=== PATIENT | female | born 1980 | race Caucasian/White ===

== ENCOUNTER 2019-01-04 05:31 | Inpatient (IN) | payer MEDICARE, MEDICAID ==
[2018-12-22 16:25] LABS: BASOPHILS # (AUTO) 0.1 X10'3 (0-0.2); BASOPHILS % (AUTO) 1.3 % (0-1); EOSINOPHILS # (AUTO) 0.1 X10'3 (0-0.9); LYMPHOCYTES # (AUTO) 1.8 X10'3 (1.1-4.8); LYMPHOCYTES % (AUTO) 34.2 % (21-51); MEAN CORPUSCULAR HEMOGLOBIN 31.2 PG (27.0-31.0); MEAN CORPUSCULAR HGB CONC 33.8 g/dL (33.0-36.5); MEAN CORPUSCULAR VOLUME 92.3 FL (78-98); MEAN PLATELET VOLUME 8.7 FL (7.4-10.4); MONOCYTES # (AUTO) 0.4 X10'3 (0-0.9); MONOCYTES % (AUTO) 8.1 % (2-12); NEUTROPHILS # (AUTO) 2.9 X10'3 (1.8-7.7); NEUTROPHILS % (AUTO) 55.4 % (42-75); PRE OP HEMATOCRIT 46.7 % (35.0-45.0); PRE OP HEMOGLOBIN 15.8 g/dL (12.0-16.0); PRE OP PLATELET COUNT 201 X10'3 (140-440); RED BLOOD COUNT 5.06 X10'6 (4.20-5.60); RED CELL DISTRIBUTION WIDTH 13.9 % (11.5-14.5)
[2018-12-22 16:35] LABS: PRE OP PROTIME 10.6 SECONDS (9.0-12.0)
[2018-12-22 16:48] LABS: ALBUMIN 3.3 G/DL (3.4-5.0); ALBUMIN/GLOBULIN RATIO 0.9 (1.1-1.5); ALKALINE PHOSPHATASE 130 IU/L (46-116); BLOOD UREA NITROGEN 17 MG/DL (7-18); CALCIUM 9.3 MG/DL (8.5-10.1); CHLORIDE 107 MMOL/L (99-107); CREATININE 1.06 MG/DL (0.40-0.90); PRE OP ANION GAP 6 (8-16); PRE OP AST 67 U/L (10-37); PRE OP BILIRUB, TOTAL 0.9 MG/DL (0.0-1.0); PRE OP GLUCOSE 74 MG/DL (70-104); PRE OP POTASSIUM 3.9 MMOL/L (3.4-5.1); PRE OP SODIUM 143 MMOL/L (135-145); TOTAL CARBON DIOXIDE 29.9 MMOL/L (24-32); TOTAL PROTEIN 7.1 G/DL (6.4-8.2); eGFR 58 ML/MIN
[2018-12-22 16:55] LABS: PRE OP ALT 120 U/L (30-65)
[2019-01-04] VITALS (18 sets, daily range): BP systolic 80–137; BP diastolic 57–95
[~2019-01-04] VITALS: Ht 139.7 cm; Wt 52.5 kg
[~2019-01-04 05:31] MED LIST: ACET-812 PO; BCP PO; IBUP-1984 PO; INUL1TAB4 PO; LEVO75TA PO; NAPR220C15 PO; NORMAL SALINE IV ONE; TRANEXAMIC ACID IV ONE; VANCOMYCIN INJ 1000 MG in NORMAL SALINE 250ml IV.SOLN IV ONE; [UNRECOGNIZED DRUG - OTHER] PO; cefazolin/dext.iso 2gm/50ml 50 ML IV ONE; famotidine 20mg tablet PO ONE; ringers solution, lacted 1,000 ML IV SCH
[2019-01-04] MEDS ORDERED: LIDOcaine 1% (10mg/ml) 2ml vial ONE (06:06)
[2019-01-04] MEDS ORDERED: ketorolac trometh. 30mg/ml inj. ONE (06:59)
[2019-01-04] MEDS ORDERED: ROPIVAcaine 0.5% (5mg/ml) 30ml vial ONE ×2 (06:59→10:56)
[2019-01-04] MEDS ORDERED: tetracaine 1% (10mg/ml) pres. free inj. ONE (07:21)
[2019-01-04] MEDS ORDERED: fentaNYL/PF 50MCG/1 ML 2ML syringe ONE (07:24)
[2019-01-04] MEDS ORDERED: MIDAZolam 5mg/5ml vial ONE (07:25)
[2019-01-04] MEDS ORDERED: mineral oil 10ml sterile, topical TP ONE (07:49)
[2019-01-04] MEDS ORDERED: ringers solution, lacted 1,000 ML IV SCH (10:07)
[2019-01-04] MEDS ORDERED: meperidine/PF 25mg/ml syringe IV PRN ×3 (10:10)
[2019-01-04] MEDS ORDERED: morphine 4 MG/ML inj SYRINge IV PRN ×2 (10:10)
[2019-01-04] MEDS ORDERED: ondansetron/PF 4mg/2ml inj IV PRN ×2 (10:10→11:10)
[2019-01-04] MEDS ORDERED: proCHLORperazine 10 MG/2 ml inj IV PRN (10:10)
[2019-01-04] MEDS ORDERED: ePHEDrine 50MG/ML INJ. ONE (10:56)
[2019-01-04] MEDS ORDERED: diphenhydrAMINE 50 mg/ml inj ONE (10:56)
[2019-01-04] MEDS ORDERED: LIDOcaine 1%/PF 5ML 10 MG/ML VIAL ONE (10:56)
[2019-01-04] MEDS ORDERED: propofol inj 20 ML IV ONE (10:56)
[2019-01-04] MEDS ORDERED: meperidine/PF 50mg/ml syringe ONE (11:10)
[2019-01-04] MEDS ORDERED: non-formulary drug (Acetaminophen (Tylenol Extra Strength) 1 TABLET) PO PRN (11:10)
[2019-01-04] MEDS ORDERED: HYDROmorphone inj. 0.5 MG/0.5 ML DISP.SYRIN IV PRN (11:10)
[2019-01-04] MEDS ORDERED: bisacodyl 10mg suppository rectal RC PRN (11:10)
[2019-01-04] MEDS ORDERED: oxyCODONE IR 5mg (immed. release) tablet PO PRN (11:10)
[2019-01-04] MEDS ORDERED: diphenhydrAMINE 25mg capsule PO PRN ×2 (11:10)
[2019-01-04] MEDS ORDERED: acetaminophen 325mg tablet PO PRN (11:10)
[2019-01-04] MEDS ORDERED: HYDROmorphone 1 mg/ml syringe IV PRN (11:10)
--- NOTE | 2019-01-04 11:15 | NUR ---
ADMITTED TO PACU FROM OR ACCOMPANIED BY ANESTHESIA. INTIAL PHYSICAL ASSESSMENT DONE AND RECORDED. AWAKE AND RESPONSE ON ARRIVE YO PACU, REPORT RECEIVED FROM ANESTHESIA.
--- NOTE | 2019-01-04 12:10 | NUR ---
PACU DISCHARGE CRITERIA MET, REPORT GIVEN TO FLOOR. DENIES PAIN OR DISCOMFORT, TRANSFERRED TO ROOM IN STABLE GOOD CONDITION.
[2019-01-04] MEDS: ROPIVAcaine 0.2%/PF PAIN PUMP 550 ML IJ SCH (12:21)
[2019-01-04] MEDS ORDERED: TRANEXAMIC ACID IV ONE (14:10)
[2019-01-04] MEDS ORDERED: NORMAL SALINE IV ONE (14:10)
[2019-01-04] MEDS: potassium cl 20mEq in 1/2 NS 1,000 ML IV SCH (15:55)
[2019-01-04] MEDS: acetaminophen 325mg tablet PO SCH ×2 (15:57→19:59)
[2019-01-04] MEDS: ceFAZolin 1GM/D5W- ADD-VANTAGE 50 ML IV SCH (16:39)
[2019-01-04] MEDS ORDERED: vancomycin/NS 1 GM ADD-VANTAGE 250 ML IV SCH (20:00)
[2019-01-04] MEDS ORDERED: BCP PO SCH (21:00)
[2019-01-04] MEDS: sennosides 8.6mg tablet PO SCH (21:52)
[2019-01-05] VITALS (7 sets, daily range): BP systolic 95–158; BP diastolic 38–78
[2019-01-05] MEDS: ceFAZolin 1GM/D5W- ADD-VANTAGE 50 ML IV SCH (00:04)
[2019-01-05] MEDS: acetaminophen 325mg tablet PO SCH ×4 (01:45→19:43)
--- NOTE | 2019-01-05 01:59 | NUR ---
ARANDA CATHETER SLIPPED OUT, WAS FOUND IN THE BED, BALLOON DEFLATED, TIP COMPLETELY INTACT IF NEVER INFLATED. PT ALSO WAS PLACED ON BEDPAN AND WAS ABLE TO VOID 350ML YELLOW SLIGHTLY CLOUDY URINE. Addendum: 01/05/19 at 0202 by Lani Barfield RN Amended: Links added.
[2019-01-05] MEDS: potassium cl 20mEq in 1/2 NS 1,000 ML IV SCH ×3 (02:09→11:51)
[2019-01-05] MEDS: oxyCODONE IR 5mg (immed. release) tablet PO PRN ×3 (04:58→23:34)
--- NOTE | 2019-01-05 06:05 | NUR ---
Patient in room ORTHO 4006. I have received report from Lani/Mercedez and had the opportunity to ask questions and assume patient care.
[2019-01-05 07:01] LABS: BASOPHILS # (AUTO) 0.1 X10'3 (0-0.2); BASOPHILS % (AUTO) 1.2 % (0-1); EOSINOPHILS % (AUTO) 0.1 % (0-6); LYMPHOCYTES # (AUTO) 1.5 X10'3 (1.1-4.8); MEAN CORPUSCULAR HEMOGLOBIN 32.6 PG (27.0-31.0); MEAN CORPUSCULAR HGB CONC 35.2 g/dL (33.0-36.5); MEAN CORPUSCULAR VOLUME 92.8 FL (78-98); MONOCYTES # (AUTO) 0.4 X10'3 (0-0.9); MONOCYTES % (AUTO) 5.2 % (2-12); NEUTROPHILS % (AUTO) 74.5 % (42-75); PLATELET COUNT 187 X10'3 (140-440); RED BLOOD COUNT 3.98 X10'6 (4.20-5.60); RED CELL DISTRIBUTION WIDTH 14.1 % (11.5-14.5); WHITE BLOOD COUNT 8.1 X10'3 (4.5-11.0)
[2019-01-05 07:14] LABS: ANION GAP 8 (8-16); CHLORIDE 108 MMOL/L (99-107); POTASSIUM 3.9 MMOL/L (3.5-5.1); SODIUM 140 MMOL/L (135-145); TOTAL CARBON DIOXIDE 23.6 MMOL/L (24-32)
[2019-01-05] MEDS: calcium carbonate 500mg chew tablet PO SCH (07:25)
[2019-01-05] MEDS: levoTHYROXINE 100mcg tablet PO SCH (07:25)
[2019-01-05] MEDS ORDERED: INULIN PO SCH (08:00)
[2019-01-05] MEDS ORDERED: CHROMIUM PICOLINATE PO SCH (08:00)
[2019-01-05] MEDS: aspirin 325mg tablet PO SCH (08:45)
[2019-01-05] MEDS ORDERED: ASPI-1 PO (09:04)
--- NOTE | 2019-01-05 18:41 | NUR ---
Problems reprioritized. Patient report given, questions answered & plan of care reviewed with
[2019-01-05] MEDS: sennosides 8.6mg tablet PO SCH (19:43)
[2019-01-05] MEDS: celeCOXIB 100mg capsule PO SCH (19:43)
--- NOTE | 2019-01-05 23:15 | NUR ---
TOOK PT TO BATHROOM. ON THE WAY BACK TO BED, WHILE STANDING, PT STATED SHE IS DIZZY. I PUT HER BACK ON TOILET AND CALLED FOR HELP. WHEN SHE SAID SHE IS READY TO GO BACK TO BED, WE HELPED PT WALKED BACK. PT PASSED OUT WHEN PT WAS ALMOST TO BED. MILAGROS LU AND I CAUGHT PT BEFORE SHE GETS TO THE FLOOR AND PLACED BACK IN BED. TOOK ORTHOSTATIC VITAL 128/62 HR67 LAYING 101/70 HR72 SITTING 95/38 HR 58 STANDING
[2019-01-06] MEDS: acetaminophen 325mg tablet PO SCH ×2 (02:00→08:31)
[2019-01-06] MEDS: potassium cl 20mEq in 1/2 NS 1,000 ML IV SCH (03:10)
[2019-01-06] MEDS: oxyCODONE IR 5mg (immed. release) tablet PO PRN (05:12)
[2019-01-06 06:00] VITALS: BP 112/61
--- NOTE | 2019-01-06 06:10 | NUR ---
Patient in room ORTHO 4006. I have received report from DOMONIQUE ANDREWS and had the opportunity to ask questions and assume patient care.
--- NOTE | 2019-01-06 06:18 | NUR ---
Problems reprioritized. Patient report given, questions answered & plan of care reviewed with JULIANA LAUGHLIN.
[2019-01-06 07:21] LABS: BASOPHILS # (AUTO) 0.1 X10'3 (0-0.2); BASOPHILS % (AUTO) 0.6 % (0-1); EOSINOPHILS % (AUTO) 0.2 % (0-6); HEMATOCRIT 33.6 % (35.0-45.0); HEMOGLOBIN 11.4 g/dl (12.0-16.0); LYMPHOCYTES # (AUTO) 1.5 X10'3 (1.1-4.8); LYMPHOCYTES % (AUTO) 12.7 % (21-51); MEAN CORPUSCULAR HEMOGLOBIN 31.9 PG (27.0-31.0); MEAN CORPUSCULAR VOLUME 93.7 FL (78-98); MEAN PLATELET VOLUME 8.9 FL (7.4-10.4); MONOCYTES # (AUTO) 0.7 X10'3 (0-0.9); MONOCYTES % (AUTO) 5.6 % (2-12); NEUTROPHILS # (AUTO) 9.4 X10'3 (1.8-7.7); NEUTROPHILS % (AUTO) 80.9 % (42-75); PLATELET COUNT 171 X10'3 (140-440); RED BLOOD COUNT 3.58 X10'6 (4.20-5.60); RED CELL DISTRIBUTION WIDTH 14.4 % (11.5-14.5); WHITE BLOOD COUNT 11.6 X10'3 (4.5-11.0)
--- NOTE | 2019-01-06 07:49 | NUR ---
INCREASED ON-Q TO 14MG/HR
[2019-01-06] MEDS: celeCOXIB 100mg capsule PO SCH ×2 (08:30→20:48)
[2019-01-06] MEDS: levoTHYROXINE 100mcg tablet PO SCH (08:30)
[2019-01-06] MEDS: calcium carbonate 500mg chew tablet PO SCH (08:31)
[2019-01-06] MEDS: aspirin 325mg tablet PO SCH (08:31)
--- NOTE | 2019-01-06 08:47 | NUR ---
When administering Tylenol 650 mg at 0831, the patient had a 2/10 achy pain in the L knee
[2019-01-06 09:00] VITALS: BP_SYST 110; BP_DIAS 56; BP_DIAS 70
[2019-01-06] MEDS: ROPIVAcaine 0.2%/PF PAIN PUMP 550 ML IJ SCH (09:59)
[2019-01-06 10:00] VITALS: BP 110/59
--- NOTE | 2019-01-06 15:50 | NUR ---
DR. URENA TURNED ON-Q PUMP DOWN TO 8MLS/HR
--- NOTE | 2019-01-06 17:58 | NUR ---
Student documentation: I have reviewed and agree with all interventions, assessments performed and documented by [place].
--- NOTE | 2019-01-06 17:59 | NUR ---
Student Medication Administration: For this medication-pass time frame, all medication were reviewed, dispensed, administered and documented per hospital policy by [place].
[2019-01-06 18:00] VITALS: BP 102/49
--- NOTE | 2019-01-06 18:00 | NUR ---
Received report from Keyonna ANDREWS & Janet student nurse
--- NOTE | 2019-01-06 18:03 | NUR ---
REPORT GIVEN TO EMMA Ramos RN
[2019-01-06 20:00] VITALS: BP 144/72
[2019-01-06] MEDS: sennosides 8.6mg tablet PO SCH (20:48)
[2019-01-06] MEDS: magnesium hydroxide 30ml (MOM) UD suspension PO PRN (20:52)
[2019-01-06 22:00] VITALS: BP 144/72
[2019-01-07] MEDS: ROPIVAcaine 0.2%/PF PAIN PUMP 550 ML IJ SCH ×2 (00:40→05:18)
[2019-01-07] MEDS: acetaminophen 325mg tablet PO PRN ×2 (05:15→14:54)
--- NOTE | 2019-01-07 05:20 | NUR ---
patient refused to stand up for orthostatic vitals
[2019-01-07 05:21] VITALS: BP_SYST 121; BP_SYST 128; BP_DIAS 65; BP_DIAS 74
[2019-01-07 05:58] LABS: BASOPHILS # (AUTO) 0.1 X10'3 (0-0.2); BASOPHILS % (AUTO) 0.8 % (0-1); EOSINOPHILS # (AUTO) 0.1 X10'3 (0-0.9); EOSINOPHILS % (AUTO) 1.3 % (0-6); HEMATOCRIT 29.4 % (35.0-45.0); HEMOGLOBIN 10.1 g/dl (12.0-16.0); LYMPHOCYTES # (AUTO) 1.7 X10'3 (1.1-4.8); LYMPHOCYTES % (AUTO) 22.2 % (21-51); MEAN CORPUSCULAR HEMOGLOBIN 32.6 PG (27.0-31.0); MEAN CORPUSCULAR HGB CONC 34.3 g/dL (33.0-36.5); MONOCYTES # (AUTO) 0.5 X10'3 (0-0.9); MONOCYTES % (AUTO) 6.6 % (2-12); NEUTROPHILS # (AUTO) 5.3 X10'3 (1.8-7.7); NEUTROPHILS % (AUTO) 69.1 % (42-75); PLATELET COUNT 162 X10'3 (140-440); RED CELL DISTRIBUTION WIDTH 14.3 % (11.5-14.5); WHITE BLOOD COUNT 7.7 X10'3 (4.5-11.0)
[2019-01-07 06:00] VITALS: BP 121/65
--- NOTE | 2019-01-07 06:00 | NUR ---
Gave report to Keyonna ANDREWS & Janet student nurse
--- NOTE | 2019-01-07 06:00 | NUR ---
Patient in room ORTHO 4006. I have received report from EMMA ANDREWS and had the opportunity to ask questions and assume patient care.
[2019-01-07] MEDS: celeCOXIB 100mg capsule PO SCH ×2 (08:41→20:38)
[2019-01-07] MEDS: levoTHYROXINE 100mcg tablet PO SCH (08:41)
[2019-01-07] MEDS: calcium carbonate 500mg chew tablet PO SCH (08:41)
[2019-01-07] MEDS: aspirin 325mg tablet PO SCH (08:42)
[2019-01-07 10:00] VITALS: BP 99/53
--- NOTE | 2019-01-07 17:10 | NUR ---
FAMILY TURNED ON-Q PUMP DOWN TO 6
--- NOTE | 2019-01-07 17:50 | NUR ---
Student documentation: I have reviewed and agree with all interventions, assessments performed and documented by [place]. Student Medication Administration: For this medication-pass time frame, all medication were reviewed, dispensed, administered and documented per hospital policy by [employer] [place].
[2019-01-07 18:00] VITALS: BP 95/61
--- NOTE | 2019-01-07 18:10 | NUR ---
Received report from Keyonna ANDREWS & Janet student nurse. Assumed care of patient.
--- NOTE | 2019-01-07 18:19 | NUR ---
REPORT GIVEN TO EMMA Ramos RN.
[2019-01-07 20:00] VITALS: BP 127/66
--- NOTE | 2019-01-07 20:00 | NUR ---
pt refused to stand for orthostatics
[2019-01-07] MEDS: sennosides 8.6mg tablet PO SCH (20:39)
[2019-01-07] MEDS: magnesium hydroxide 30ml (MOM) UD suspension PO PRN (20:39)
[2019-01-07 22:00] VITALS: BP 127/66
[2019-01-08 06:00] VITALS: BP 118/54
--- NOTE | 2019-01-08 06:00 | NUR ---
Gave report to Keyonna ANDREWS.
--- NOTE | 2019-01-08 06:00 | NUR ---
Patient in room ORTHO 4006. I have received report from EMMA ANDREWS and had the opportunity to ask questions and assume patient care.
[2019-01-08] MEDS: calcium carbonate 500mg chew tablet PO SCH (07:07)
[2019-01-08] MEDS: levoTHYROXINE 100mcg tablet PO SCH (07:07)
[2019-01-08] MEDS: aspirin 325mg tablet PO SCH (07:07)
[2019-01-08] MEDS: celeCOXIB 100mg capsule PO SCH (07:07)
[2019-01-08 10:00] VITALS: BP 108/54
[2019-01-08] MEDS: ROPIVAcaine 0.2%/PF PAIN PUMP 550 ML IJ SCH (10:07)
--- NOTE | 2019-01-08 10:20 | NUR ---
PATIENT DISCHARGED SAFELY WITH MOM. ALL BELONGINGS IN POSSESSION. PATIENT AND MOM VERBALIZE UNDERSTANDING OF DC INSTRUCTIONS.
== END 2019-01-08 10:30 | disposition home or self-care (01) | DRG 470 ==
LOC: PAS IN 05:31 → EDSTATUS 07:45 → ORTHO 4S 12:45
PROVIDERS: ADMIT Orthopaedic Surgery; ATTEND Orthopaedic Surgery
PROC: 3E0T3BZ Introduction of Anesthetic Agent into Peripheral Nerves and Plexi, Percutaneous Approach (ICD-10-PCS; 2019-01-04)
PROC: 8E0YXBZ Computer Assisted Procedure of Lower Extremity (ICD-10-PCS; 2019-01-04)
PROC: 8E0YXCZ Robotic Assisted Procedure of Lower Extremity (ICD-10-PCS; 2019-01-04)
PROC: 0SRD069 Replacement of Left Knee Joint with Oxidized Zirconium on Polyethylene Synthetic Substitute, Cemented, Open Approach (ICD-10-PCS; principal; 2019-01-04 07:45)
DX: M17.12 Unilateral primary osteoarthritis, left knee (principal); D62 Acute posthemorrhagic anemia; M25.562 Pain in left knee; E03.9 Hypothyroidism, unspecified; I25.10 Atherosclerotic heart disease of native coronary artery without angina pectoris; M21.062 Valgus deformity, not elsewhere classified, left knee; Q90.9 Down syndrome, unspecified; Z79.899 Other long term (current) drug therapy
CPT/HCPCS: 36415; 71046; 80051; 80053; 82948; 84443; 85025; 85610; 85730; 87081; 93005; 97110; 97116; 97161; 97530; 97535; A4215; A6454; A7000; C1713; C1758; C1776; G0378; J0690; J1200; J1885; J2001; J2175; J2250; J2704; J2795; J3010; J3370; J3480; J7030; J7120